=== PATIENT | female | born 1980 | race Caucasian/White ===

== ENCOUNTER 2020-03-02 13:51 | Emergency (ER) | payer BC, MEDICAID, SELFPAY ==
[2020-03-02] MEDS ORDERED: Sodium Chloride 0.9% 10 ML Syringe FLUSH PRN (14:12)
[2020-03-02] MEDS ORDERED: Pantoprazole 40 MG Vial IVPUSH ONE (14:12)
[2020-03-02] MEDS ORDERED: Ondansetron 4 MG/2 ML SDV IV ONE (14:12)
[2020-03-02] MEDS ORDERED: Sodium Chloride 0.9% 1,000 ML IV ONE (14:12)
[2020-03-02] MEDS ORDERED: Glucagon,Human Recombinant 1 MG Vial IVPUSH ONE (15:25)
[2020-03-02] MEDS ORDERED: LORazepam 2 MG/ML SDV IVPUSH ONE (15:26)
[2020-03-02] MEDS: Metoclopramide 10 MG/2 ML SDV IVPUSH ONE ×2 (16:06→16:07)
--- NOTE | 2020-03-02 16:33 | EDM.PDOC ---
Scribed by Patience Sandoval 03/02/20 1409 for Cristhian Arriaga MD ED HPI GENERAL MEDICAL PROBLEM - General Chief Complaint: Gastrointestinal Problem Stated Complaint: [id number] THROWING UP SINCE LAST NIGHT Time Seen by Provider: 03/02/20 14:01 Source of Information: Reports: Patient, RN, RN Notes Reviewed History Limitations: Reports: No Limitations - History of Present Illness INITIAL COMMENTS - FREE TEXT/NARRATIVE: Patient presents to ER by POV. Patient states had pork roast last evening. Patient states that sometimes meat will get stuck in her esophagus. Patient states that she started throwing up last evening. Patient states that she has been drinking milk today but it will not go down or stay down. She tries to swallow her saliva, but it builds up until she spits it up. Patient took a Dramamine within last couple hours. Patient states she has acid reflux. She has had food get stuck several times in the past, and has cancelled EGD at least twice because she is afraid of having a procedure. Onset Date: 03/01/20 Duration: Getting Worse Location: Reports: Abdomen Quality: Reports: Ache Severity: Moderate Improves with: Reports: None Worsens with: Reports: None Associated Symptoms: Reports: No Other Symptoms Epigastric Pain Score (Numeric/FACES): 8 - Related Data Allergies Allergy/AdvReac Type Severity Reaction Status Date / Time milnacipran HCl Allergy Unknown UNKNOWN Verified 03/02/20 14:05 [From Savella] multivitamin with iron,other Allergy Airway Verified 03/02/20 14:05 minera Tightness [From Multilex] pregabalin [From Lyrica] Allergy Airway Verified 03/02/20 14:05 Tightness rizatriptan benzoate Allergy UNKNOWN Verified 03/02/20 14:05 [From Maxalt] rofecoxib [From Vioxx] Allergy Hives Verified 03/02/20 14:05 Sulfa (Sulfonamide Allergy Nausea Verified 03/02/20 14:05 Antibiotics) sumatriptan [From Imitrex] Allergy Airway Verified 03/02/20 14:05 Tightness paper tape Allergy Hives Uncoded 03/02/20 14:05 Home Meds: Home Meds DULoxetine HCl [Cymbalta] 60 mg PO DAILY 07/16/13 [History] Levothyroxine 150 mcg PO ACBRK 07/16/13 [History] Ondansetron [Zofran Odt] 8 mg PO Q6H PRN 07/16/13 [History] traZODone HCl [Trazodone HCl] 50 mg PO DAILY 03/02/20 [History] Social & Family History - Tobacco Use Smoking Status *Q: Current Every Day Smoker Years of Tobacco use: 10 Packs/Tins Daily: 0.5 - Caffeine Use Caffeine Use: Reports: Soda - Recreational Drug Use Recreational Drug Use: No - Living Situation & Occupation Living situation: Reports: with Family Occupation: Disabled ED ROS GENERAL - Review of Systems Review Of Systems: Comprehensive ROS is negative, except as noted in HPI. ED EXAM, GI/ABD - Physical Exam Exam: See Below Exam Limited By: No Limitations General Appearance: Alert, WD/WN, No Apparent Distress, Anxious Eyes: Bilateral: Normal Appearance Nose: Normal Inspection, No Blood Throat/Mouth: Normal Lips, Normal Oropharynx, Normal Voice, No Airway Compromise Head: Atraumatic, Normocephalic Neck: Normal Inspection Respiratory/Chest: No Respiratory Distress, Lungs Clear, Normal Breath Sounds, No Accessory Muscle Use, Chest Non-Tender Cardiovascular: Regular Rate, Rhythm, Tachycardia GI/Abdominal Exam: Normal Bowel Sounds, Soft, No Distention, No Abnormal Bruit, Tender (Mild epigastric tenderness). No: Guarding, Rigid, Rebound Neurological: Alert, Oriented, No Motor/Sensory Deficits Psychiatric: Anxious Skin Exam: Warm, Dry, Intact, Normal Color, No Rash Course - Vital Signs Last Recorded V/S: Last Vital Signs Temp 97.2 F 03/02/20 13:59 Pulse 103 H 03/02/20 13:59 Resp 20 03/02/20 13:59 BP 138/88 03/02/20 13:59 Pulse Ox 97 03/02/20 13:59 - Orders/Labs/Meds Orders: Active Orders 24 hr Category Date Time Status Peripheral IV Care [RC] . DIRECTED Care 03/02/20 14:12 Active Sodium Chloride 0.9% [Saline Flush] Med 03/02/20 14:12 Active 10 ml FLUSH ASDIRECTED PRN Peripheral IV Insertion Adult [OM.PC] Stat Oth 03/02/20 14:12 Ordered Medication Orders Sodium Chloride (Saline Flush) 10 ml FLUSH ASDIRECTED PRN PRN Reason: Keep Vein Open Last Admin: 03/02/20 14:40 Dose: 10 ml Documented by: SARA Meds: Medications Generic Name Dose Route Start Last Admin Trade Name Freq PRN Reason Stop Dose Admin Sodium Chloride 10 ml 03/02/20 14:12 03/02/20 14:40 Saline Flush FLUSH 10 ml ASDIRECTED PRN Administration Keep Vein Open Discontinued Medications Generic Name Dose Route Start Last Admin Trade Name Freq PRN Reason Stop Dose Admin Glucagon 1 mg 03/02/20 15:25 03/02/20 15:58 Glucagen IVPUSH 03/02/20 15:26 1 mg ONETIME ONE Administration Sodium Chloride 1,000 mls @ 999 mls/hr 03/02/20 14:12 03/02/20 14:41 Normal Saline IV 03/02/20 15:12 999 mls/hr .BOLUS ONE Administration Lorazepam 0.5 mg 03/02/20 15:26 03/02/20 16:05 Ativan IVPUSH 03/02/20 15:27 0.5 mg ONETIME ONE Administration Metoclopramide HCl 10 mg 03/02/20 15:26 03/02/20 16:07 Reglan IVPUSH 03/02/20 15:27 10 mg ONETIME ONE Administration Ondansetron HCl 4 mg 03/02/20 14:12 03/02/20 14:38 Zofran IV 03/02/20 14:13 4 mg ONETIME ONE Administration Pantoprazole Sodium 40 mg 03/02/20 14:12 03/02/20 14:39 Protonix Iv IVPUSH 03/02/20 14:13 40 mg ONETIME ONE Administration - Re-Assessments/Exams Free Text/Narrative Re-Assessment/Exam: 03/02/20 16:30 Pt unable to keep down water after glucagon. She attempted to swallow the meat last evening and delayed coming to the ER in hopes of getting it to go down. I will have to transfer her to [facility] for access to GI, Dr. Rivera accepts the pt. Departure - Departure Time of Disposition: 16:31 Disposition: DC/Tfer to Acute Hospital 02 Condition: Fair Clinical Impression: Esophageal obstruction due to food impaction - Discharge Information *PRESCRIPTION DRUG MONITORING PROGRAM REVIEWED*: Not Applicable *COPY OF PRESCRIPTION DRUG MONITORING REPORT IN PATIENT JOSR: Not Applicable Forms: ED Department Discharge, Interfacility Transfer [facility] Sepsis Event Note (ED) - Evaluation Sepsis Screening Result: No Definite Risk - Focused Exam Vital Signs: Vital Signs Temp Pulse Resp BP Pulse Ox 03/02/20 13:59 97.2 F 103 H 20 138/88 97 - My Orders Last 24 Hours: My Active Orders 03/02/20 14:12 Peripheral IV Care [RC] . DIRECTED Sodium Chloride 0.9% [Saline Flush] 10 ml FLUSH ASDIRECTED PRN Peripheral IV Insertion Adult [OM.PC] Stat - Assessment/Plan Last 24 Hours: My Active Orders 03/02/20 14:12 Peripheral IV Care [RC] . DIRECTED Sodium Chloride 0.9% [Saline Flush] 10 ml FLUSH ASDIRECTED PRN Peripheral IV Insertion Adult [OM.PC] Stat I have read and agree with the documentation that has been completed regarding this visit. By signing this record, I attest that the documentation was completed in my physical presence and is an accurate record of the encounter.
== END 2020-03-02 17:48 ==
LOC: DL.ED 13:51
DX: T18.128A Food in esophagus causing other injury, initial encounter (principal); F17.210 Nicotine dependence, cigarettes, uncomplicated; Z88.2 Allergy status to sulfonamides; Z88.8 Allergy status to other drugs, medicaments and biological substances; Z79.899 Other long term (current) drug therapy; Z91.048 Other nonmedicinal substance allergy status
CPT/HCPCS: 96374; 96375; 99285; C9113; J1610; J2060; J2405; J2765; J7030; 99284

== ENCOUNTER 2022-01-17 08:37 | Emergency (ER) | payer MEDICAID ==
[2022-01-17 09:41] LABS: AMPHETAMINES,URINE NEGATIVE (NEGATIVE); BARBITURATES,URINE NEGATIVE (NEGATIVE); BENZODIAZEPINE,URINE NEGATIVE (NEGATIVE); MDMA (ECSTASY), URINE NEGATIVE (NEGATIVE); METHADONE,URINE NEGATIVE (NEGATIVE); METHAMPHETAMINES,URINE NEGATIVE (NEGATIVE); OPIATES,URINE NEGATIVE (NEGATIVE); OXYCODONE,URINE NEGATIVE (NEGATIVE); PHENCYCLIDINE,URINE NEGATIVE (NEGATIVE); TCA,URINE NEGATIVE (NEGATIVE)
== END 2022-01-17 10:08 | disposition home or self-care (01) ==
LOC: DL.ED 08:37
DX: N39.0 Urinary tract infection, site not specified (principal); K21.9 Gastro-esophageal reflux disease without esophagitis; Z79.899 Other long term (current) drug therapy; Z88.8 Allergy status to other drugs, medicaments and biological substances; Z91.048 Other nonmedicinal substance allergy status; Z88.2 Allergy status to sulfonamides
CPT/HCPCS: 80305-QW; 81001; 87086; 99284